=== PATIENT | male | born 1965 | race Caucasian/White ===

== ENCOUNTER 2022-05-25 11:07 | Day surgery (SDC) | payer OTHER ==
[~2022-05-25] VITALS: Ht 175.3 cm; Wt 110.3 kg
[~2022-05-25 11:07] MED LIST: ALBU90OI INH; AZIT250 PO; BUPR150ER PO; CYCL10 PO; HYDACE10B PO; MECL25 PO; Naprosyn500 MG PO; Norco 5-325 Ta1 EACH PO; OSEL75CA PO; OSTEOFLEX; Q 10; TESTONE CI200 MG/1 M IM; VARE1 PO
== END 2022-05-25 13:00 | disposition home or self-care (01) ==
LOC: ORSCSDS 11:07
PROVIDERS: Internal Medicine Gastroenterology
PROC: 0DBL8ZX Excision of Transverse Colon, Via Natural or Artificial Opening Endoscopic, Diagnostic (ICD-10-PCS; principal; 2022-05-25 13:30)
DX: Z12.11 Encounter for screening for malignant neoplasm of colon (principal); Z86.010 Personal history of colon polyps; D12.3 Benign neoplasm of transverse colon; K64.8 Other hemorrhoids; G47.33 Obstructive sleep apnea (adult) (pediatric); Z87.891 Personal history of nicotine dependence; E66.9 Obesity, unspecified; Z68.35 Body mass index [BMI] 35.0-35.9, adult
CPT/HCPCS: 88305; J2704; J7120

== ENCOUNTER 2023-02-10 05:59 | Emergency (ER) | payer OTHER, BC ==
[~2023-02-10] VITALS: Ht 172.7 cm; Wt 108.9 kg
[2023-02-10 06:12] VITALS: BP 148/99
[2023-02-10] MEDS ORDERED: METPRE4DP PO (07:25)
== END 2023-02-10 08:02 | disposition home or self-care (01) ==
LOC: ER 05:59
DX: J06.9 Acute upper respiratory infection, unspecified (principal); J40 Bronchitis, not specified as acute or chronic; B97.89 Other viral agents as the cause of diseases classified elsewhere; Z20.822 Contact with and (suspected) exposure to COVID-19; Z87.891 Personal history of nicotine dependence; Z88.8 Allergy status to other drugs, medicaments and biological substances; Z88.5 Allergy status to narcotic agent
CPT/HCPCS: 71046; 93005; 93010; 99283-25

== ENCOUNTER 2025-04-03 17:51 | Emergency (ER) | payer OTHER ==
[~2025-04-03] VITALS: Ht 175.3 cm; Wt 108.9 kg
[~2025-04-03 17:51] MED LIST changes: +ALMACONE SUSPE355 ML PO; +ASCORBIC ACID500 MG PO; +CELE200 PO; +CENTRUM SILVER1 EAC2 PO; +Crestor40 MG; +FAMO20 PO; +METPRE4DP PO; +TRAM50 PO; +TRAZ50 PO; +VITAMIN D31250 MC2 PO; +ZYRTEC10 M2 PO
[2025-04-03 17:54] VITALS: BP 150/99
[2025-04-03 18:39] LABS: U Amphetamine Screen Not Detected; U Barbiturate Screen Not Detected; U Benzodiazapine Screen Not Detected; U Buprenorphine Screen Not Detected; U Cannabinoids Screen Not Detected; U Cocaine Screen Not Detected; U Methadone Screen Not Detected; U Methamphetamine Screen Not Detected; U Opiates Screen Not Detected; U Oxycodone Screen Not Detected; U Phencyclidine Screen Not Detected
== END 2025-04-03 18:36 | disposition home or self-care (01) ==
LOC: ER 17:51
PROVIDERS: Student in an Organized Health Care Education/Training Program
DX: Z02.83 Encounter for blood-alcohol and blood-drug test (principal); Z87.891 Personal history of nicotine dependence; Z79.899 Other long term (current) drug therapy; Z88.8 Allergy status to other drugs, medicaments and biological substances
CPT/HCPCS: 99281